=== PATIENT | male | born 1955 | race African-American/Black ===

== ENCOUNTER 2023-06-24 00:54 | Inpatient (IN) | payer OTHER, MEDICAID ==
[~2023-06-24] VITALS: Ht 162.6 cm; Wt 79.8 kg
[2023-06-24] VITALS (29 sets, daily range): BP systolic 107–131; PULSE 77–104; RESP 17–20; TEMP 97.2–98.2; O2SAT 93–100
[2023-06-24 01:32] LABS: ANION GAP 10 (5-15); CALCIUM 10.4 mg/dL (8.4-11.0); CARBON DIOXIDE 32 mmol/L (23-29); CHLORIDE 104 mmol/L (98-107); CREATININE 1.53 mg/dL (0.55-1.30); GFR AFRICAN AMERICAN 59 mL/min (>90); GFR NON AFRICAN-AMERICAN 48 mL/min (>90); GLUCOSE 132 mg/dL (74-106); POTASSIUM 3.7 mmol/L (3.5-5.1); SODIUM SERUM 146 mmol/L (136-145); UREA NITROGEN, BLOOD 51 mg/dL (8-21)
[2023-06-24 01:39] LABS: BASOPHILS % (AUTO) 0.5 % (0.0-2.0); EOSINOPHILS # (AUTO) 0.2 K/uL (0.0-0.4); EOSINOPHILS % (AUTO) 3.3 % (0.0-4.0); HEMATOCRIT 34.1 % (36-54); HEMOGLOBIN 10.8 g/dL (14.0-18.0); LYMPHOCYTES # (AUTO) 1.4 K/uL (1.0-5.5); LYMPHOCYTES % (AUTO) 20.2 % (20.5-51.5); MEAN CORPUSCULAR HEMOGLOBIN 25 pg (27-31); MEAN CORPUSCULAR HGB CONC 32 % (32-36); MEAN CORPUSCULAR VOLUME 79 fL (79.0-98.0); MONOCYTES # (AUTO) 0.6 K/uL (0.0-1.0); MONOCYTES % (AUTO) 7.9 % (1.7-9.3); NEUTROPHILS # (AUTO) 4.9 K/uL (1.8-7.7); NEUTROPHILS % (AUTO) 68.1 % (40.0-70.0); PLATELET COUNT (AUTO) 224 K/uL (130-430); RED BLOOD CELL COUNT(AUTO) 4.31 MIL/uL (4.2-6.2); WHITE BLOOD COUNT (AUTO) 7.1 K/uL (4.8-10.8)
[2023-06-24] MEDS ORDERED: ATOR40TA68 PEG (05:46)
[2023-06-24] MEDS ORDERED: [UNRECOGNIZED DRUG - OTHER] MC (05:46)
[2023-06-24] MEDS ORDERED: DOCU-156 PEG (05:46)
[2023-06-24] MEDS ORDERED: SENN8.6T19 PEG (05:46)
[2023-06-24] MEDS ORDERED: LISI10TA29 PEG (05:46)
[2023-06-24] MEDS ORDERED: VITD2000 PO (05:46)
[2023-06-24] MEDS ORDERED: FER300L PEG (05:46)
[2023-06-24] MEDS ORDERED: MEMA10TA56 PEG (05:46)
[2023-06-24] MEDS ORDERED: CHLO473M12 PO (05:46)
[2023-06-24] MEDS ORDERED: DONE5TAB33 PO (05:46)
[2023-06-24] MEDS ORDERED: SCOP1PAT21 TP (05:46)
[2023-06-24] MEDS ORDERED: OMEP20CA15 PEG (05:46)
[2023-06-24] MEDS ORDERED: MULT-976 PEG (05:46)
[2023-06-24] MEDS ORDERED: ONDA4TAB55 PEG (05:46)
[2023-06-24] MEDS ORDERED: FINA5TAB11 PEG (05:46)
[2023-06-24] MEDS ORDERED: BISA-79 RC (05:46)
[2023-06-24] MEDS ORDERED: [UNRECOGNIZED DRUG - CODE] PO (05:46)
[2023-06-24] MEDS ORDERED: TAMS-11 PEG (05:46)
[2023-06-24] MEDS ORDERED: APIX5TAB PEG (05:50)
[2023-06-24] MEDS ORDERED: ACET-2051 PEG (05:50)
[2023-06-24] MEDS ORDERED: ASA81 PEG (05:50)
[2023-06-24] MEDS ORDERED: ALBU2.5V7 INH (05:50)
[2023-06-24] MEDS: IPRATROPIUM/ALBUTEROL SULFATE 3 ML AMPUL.NEB (DUONEB) INH SCH (08:54)
[2023-06-24] MEDS ORDERED: DEXTROSE 50% JECT 50 ML DISP.SYRIN IVP PRN (10:45)
[2023-06-24] MEDS ORDERED: INSULIN REGULAR, HUMAN 100 UNITS/ML, 3 ML VIAL (humuLIN R) SUBCUT PRN (10:45)
[2023-06-24] MEDS ORDERED: ACETAMINOPHEN CHILDREN'S 160 MG/5 ML UDC ORAL.SUSP GT PRN ×2 (11:00→11:30)
[2023-06-24] MEDS: TAMSULOSIN HCL 0.4 MG CAP PO ONE (11:28)
[2023-06-24] MEDS: APIXABAN 2.5 MG TABLET PO ONE (11:28)
[2023-06-24] MEDS: PANTOPRAZOLE SODIUM 40 MG TAB PO ONE (11:28)
[2023-06-24] MEDS: FINASTERIDE 5 MG TABLET (PROSCAR) PO ONE (11:29)
[2023-06-24] MEDS: SENNOSIDES 8.6 MG TABLET PO ONE (11:29)
[2023-06-24] MEDS: 0.45% NACL 1,000 ML IV SCH (11:30)
[2023-06-24] MEDS: ALBUTEROL SULFATE 0.083% 2.5 MG/3 ML VIAL.NEB INH SCH (13:19)
[2023-06-24] MEDS ORDERED: APIXABAN 2.5 MG TABLET PO SCH (21:00)
[2023-06-25] VITALS (30 sets, daily range): BP systolic 101–108; PULSE 81–84; RESP 14–18; TEMP 97.1–97.4; O2SAT 92–98
[2023-06-25] MEDS: DOCUSATE SODIUM 100 MG CAPSULE PO SCH (02:47)
[2023-06-25] MEDS: MEMANTINE HCL 5 MG TABLET PO SCH (02:47)
[2023-06-25] MEDS: MULTIVITAMINS TAB 1 TABLET PO SCH (02:47)
[2023-06-25] MEDS: APIXABAN 2.5 MG TABLET PO SCH (03:10)
[2023-06-25 08:27] LABS: BASOPHILS % (AUTO) 0.8 % (0.0-2.0); EOSINOPHILS # (AUTO) 0.2 K/uL (0.0-0.4); EOSINOPHILS % (AUTO) 3.7 % (0.0-4.0); HEMATOCRIT 31.2 % (36-54); HEMOGLOBIN 9.8 g/dL (14.0-18.0); LYMPHOCYTES # (AUTO) 1.5 K/uL (1.0-5.5); LYMPHOCYTES % (AUTO) 25.5 % (20.5-51.5); MEAN CORPUSCULAR HEMOGLOBIN 25 pg (27-31); MEAN CORPUSCULAR HGB CONC 31 % (32-36); MEAN CORPUSCULAR VOLUME 80 fL (79.0-98.0); MONOCYTES # (AUTO) 0.6 K/uL (0.0-1.0); MONOCYTES % (AUTO) 9.9 % (1.7-9.3); NEUTROPHILS # (AUTO) 3.5 K/uL (1.8-7.7); NEUTROPHILS % (AUTO) 60.1 % (40.0-70.0); PLATELET COUNT (AUTO) 223 K/uL (130-430); RED BLOOD CELL COUNT(AUTO) 3.93 MIL/uL (4.2-6.2); RED CELL DISTRIBUTION WIDTH 18.1 % (9.0-15.0); WHITE BLOOD COUNT (AUTO) 5.9 K/uL (4.8-10.8)
[2023-06-25 09:01] LABS: TOTAL IRON BIND. CAPACITY 299 ug/dL (250-450)
[2023-06-25 09:07] LABS: ALBUMIN 3.1 g/dL (3.4-4.8); CALCIUM 10.4 mg/dL (8.4-11.0); CREATININE 1.38 mg/dL (0.55-1.30); FREE T4 (FREE THYROXINE) 1.1 ng/dL (0.6-1.6); POTASSIUM 4.5 mmol/L (3.5-5.1); THYROID STIMULATING HORMONE 0.86 uIu/mL (0.34-4.82); TOTAL BILIRUBIN 0.4 mg/dL (0.0-1.0); TOTAL PROTEIN, SERUM 6.8 g/dL (6.4-8.3)
[2023-06-25 09:36] LABS: THYROID STIMULATING HORMONE 0.77 uIu/mL (0.34-4.82)
[2023-06-25] MEDS: FERROUS SULFATE 300 MG/5 ML UDC GT SCH (09:49)
[2023-06-25] MEDS: ASPIRIN 81 MG TAB.CHEW GT SCH (09:50)
[2023-06-25] MEDS: LISINOPRIL 10 MG TABLET (PRINIVIL) PO SCH (09:50)
[2023-06-25] MEDS: ATORVASTATIN 20 MG TABLET PO SCH (09:51)
[2023-06-25] MEDS: PANTOPRAZOLE SODIUM 40 MG TAB PO SCH (09:51)
[2023-06-25] MEDS: TAMSULOSIN HCL 0.4 MG CAP PO SCH (09:51)
[2023-06-25] MEDS: DONEPEZIL HCL 5 MG TABLET (ARICEPT) PO SCH (09:52)
[2023-06-25] MEDS: FINASTERIDE 5 MG TABLET (PROSCAR) PO SCH (09:52)
[2023-06-25] MEDS: SENNOSIDES 8.6 MG TABLET PO SCH (09:52)
[2023-06-25] MEDS: CHOLECALCIFEROL (VITAMIN D3) 2,000 UNIT TABLET GT SCH (09:53)
[2023-06-25] MEDS ORDERED: DONE10TA44 PEG (10:58)
[2023-06-25] MEDS ORDERED: BISA10SU61 RC (10:58)
[2023-06-25] MEDS ORDERED: GLYC2TAB21 PEG (10:58)
[2023-06-25] MEDS ORDERED: CHOL100062 PEG (10:58)
[2023-06-25] MEDS ORDERED: NA P133E41 RC (10:58)
[2023-06-25] MEDS: LANOLIN ALCOHOL/MO/W.PET/CERES 57 GM CREAM..G. TP ONE (11:45)
[2023-06-25] MEDS ORDERED: DONEPEZIL HCL 5 MG TABLET (ARICEPT) PO SCH (12:02)
[2023-06-25] MEDS: cefTRIAXone 1 GM in D5W 50 ML IV SCH (12:42)
[2023-06-25] MEDS: SOD FERRIC GLUC COMPLEX/SUC 125 MG in NS 100 ML IV SCH (15:33)
[2023-06-25] MEDS: LANOLIN ALCOHOL/MO/W.PET/CERES 57 GM CREAM..G. TP SCH (20:51)
[2023-06-26] VITALS (27 sets, daily range): BP systolic 92–119; PULSE 18–92; RESP 15–19; TEMP 97.3–99.4; O2SAT 93–98
[2023-06-26 05:09] LABS: BASOPHILS % (AUTO) 0.6 % (0.0-2.0); EOSINOPHILS # (AUTO) 0.1 K/uL (0.0-0.4); EOSINOPHILS % (AUTO) 1.5 % (0.0-4.0); HEMATOCRIT 29.9 % (36-54); HEMOGLOBIN 9.3 g/dL (14.0-18.0); LYMPHOCYTES # (AUTO) 1.6 K/uL (1.0-5.5); LYMPHOCYTES % (AUTO) 24.4 % (20.5-51.5); MEAN CORPUSCULAR HEMOGLOBIN 25 pg (27-31); MEAN CORPUSCULAR HGB CONC 31 % (32-36); MEAN CORPUSCULAR VOLUME 79 fL (79.0-98.0); MONOCYTES # (AUTO) 0.6 K/uL (0.0-1.0); MONOCYTES % (AUTO) 9.9 % (1.7-9.3); NEUTROPHILS # (AUTO) 4.1 K/uL (1.8-7.7); NEUTROPHILS % (AUTO) 63.6 % (40.0-70.0); PLATELET COUNT (AUTO) 212 K/uL (130-430); RED BLOOD CELL COUNT(AUTO) 3.79 MIL/uL (4.2-6.2); RED CELL DISTRIBUTION WIDTH 18.1 % (9.0-15.0); WHITE BLOOD COUNT (AUTO) 6.5 K/uL (4.8-10.8)
[2023-06-26 05:27] LABS: CALCIUM 9.9 mg/dL (8.4-11.0); CREATININE 1.32 mg/dL (0.55-1.30); POTASSIUM 3.8 mmol/L (3.5-5.1)
[2023-06-26 08:07] LABS: FREE PSA 0.03 ng/mL; PROSTATE SPECIFIC AG TOTAL 0.1 ng/mL (0.0-4.0)
[2023-06-26] MEDS ORDERED: ACETAMINOPHEN 650 MG/20.3 ML UDC GT PRN ×2 (10:15)
[2023-06-26] MEDS: DONEPEZIL HCL 5 MG TABLET (ARICEPT) PO SCH (11:03)
[2023-06-26] MEDS: DOXYCYCLINE HYCLATE 100 MG CAPSULE PO ONE (16:30)
[2023-06-26] MEDS ORDERED: DOXYCYCLINE HYCLATE 100 MG CAPSULE PO SCH (21:00)
[2023-06-27] MEDS ORDERED: SCOPOLAMINE HYDROBROMIDE 1 MG PATCH .72 H (TRANSDERM-SCOP) TD SCH (09:00)
== END 2023-06-26 19:15 | disposition home or self-care (01) | DRG 193 ==
LOC: SED 00:54 → STU 02:39
PROVIDERS: ADMIT Internal Medicine; ATTEND Internal Medicine
DX: J18.9 Pneumonia, unspecified organism (principal); J96.21 Acute and chronic respiratory failure with hypoxia; N17.0 Acute kidney failure with tubular necrosis; E44.1 Mild protein-calorie malnutrition; E87.0 Hyperosmolality and hypernatremia; N18.4 Chronic kidney disease, stage 4 (severe); I48.0 Paroxysmal atrial fibrillation; N40.0 Benign prostatic hyperplasia without lower urinary tract symptoms; I25.10 Atherosclerotic heart disease of native coronary artery without angina pectoris; E78.5 Hyperlipidemia, unspecified; D64.9 Anemia, unspecified; Z20.822 Contact with and (suspected) exposure to COVID-19; I12.9 Hypertensive chronic kidney disease with stage 1 through stage 4 chronic kidney disease, or unspecified chronic kidney disease; D50.9 Iron deficiency anemia, unspecified; Z79.01 Long term (current) use of anticoagulants; Z86.73 Personal history of transient ischemic attack (TIA), and cerebral infarction without residual deficits; Z87.891 Personal history of nicotine dependence; Y95 Nosocomial condition; Z90.49 Acquired absence of other specified parts of digestive tract; Z93.0 Tracheostomy status; Z68.30 Body mass index [BMI] 30.0-30.9, adult
CPT/HCPCS: 36415; 71045; 71250-TC; 76770; 80048; 80053; 80061; 82948; 83540; 83550; 83735; 83880; 84153; 84439; 84443; 84484; 85025; 87081; 93005; 93306; 94640; 94760; 97110-GP; 97112-GP; 97530-GP; 99291; G0378; J0696; J1815; J2916; J7060